=== PATIENT | female | born 2000 | race Caucasian/White ===

== ENCOUNTER 2019-04-04 12:33 | Emergency (ER) | payer OTHER, SELFPAY ==
[2019-04-04 12:45] VITALS: BP 123/73; PULSE 78; RESP 16; TEMP 37; O2SAT 100
--- NOTE | 2019-04-04 13:30 | ED.GENADULT ---
HPI - General Adult General Chief complaint: Abdominal Pain Stated complaint: ABD PAIN Time Seen by Provider: 04/04/19 13:30 Source: patient and RN notes reviewed Mode of arrival: ambulatory Limitations: no limitations History of Present Illness HPI narrative: This is a 18 years old female presented office for evaluation of possible UTI.Symptoms began last night with suprapubic tenderness and nauseated feeling.She woke up with urinary burning, frequency and urgency. She took Azo prior to arrival. She is sexually active. Denies chance of or concern for STD.Symptoms reminiscent her previous UTI. Related Data Home Medications Medication Instructions Recorded Confirmed buspirone 10 mg PO HS 04/04/19 04/04/19 levonorgestrel-ethinyl estrad 1 tablet PO DAILY 04/04/19 04/04/19 [Lessina] sertraline 100 mg PO DAILY 04/04/19 04/04/19 Allergies Allergy/AdvReac Type Severity Reaction Status Date / Time nitrofurantoin Allergy Itching Verified 04/04/19 12:42 Review of Systems Review of Systems: Narrative: CONSTITUTIONAL: Denies fever CARDIOVASCULAR: Denies chest pain RESPIRATORY: Denies cough GASTROINTESTINAL: Reports abdominal pain, nausea, vomiting GENITOURINARY: Denies vaginal discharge SKIN: Denies rash MUSCULOSKELETAL: Denies acute back pain NEUROLOGIC: Denies lightheaded PMFSH Social History Social History (Updated 04/04/19 @ 13:37 by ABI Gross) Smoking status: Never smoker Comments At time of signature, I agree with nursing past medical, surgical, social and family history. There is no relevant family history pertinent to the presenting complaint. Exam Narrative: Exam Narrative: GENERAL: This is a well-nourished, well-developed patient, in no apparent distress. CARDIOVASCULAR: Regular rate and rhythm without murmurs, gallops, or rubs. RESPIRATORY: Clear to auscultation. Breath sounds equal bilaterally. No wheezes, rales, or rhonchi. GASTROINTESTINAL: Abdomen soft, suprapubic tenderness noted, nondistended. Bowel sounds are active. No hepato-splenomegaly, or palpable masses. No guarding. SKIN: warm, intact with no suspicious lesions or rash, good texture and turgor. NEURO: awake, alert, and oriented to person, place and time. There were no obvious focal neurologic abnormalities. Steady gait BACK: Nontender without deformity or crepitance. No flank tenderness. Corona Coma Scale Eye Opening: Spontaneous 4 Krzysztof Coma Scale Motor: Obeys Commands 6 Krzysztof Coma Scale Verbal: Oriented 5 Course Vital Signs Vital signs: Vital Signs Temperature 98.6 F 04/04/19 12:45 Pulse Rate 78 04/04/19 12:45 Respiratory Rate 16 04/04/19 12:45 Blood Pressure 123/73 04/04/19 12:45 Pulse Oximetry 100 04/04/19 12:45 Temperature 98.6 F 04/04/19 12:45 Pulse Rate 78 04/04/19 12:45 Respiratory Rate 16 04/04/19 12:45 Blood Pressure 123/73 04/04/19 12:45 Pulse Oximetry 100 04/04/19 12:45 Medical Decision Making MDM Narrative Medical decision making narrative: Discharge instructions reviewed with patient, as well as provided in writing per nursing staff. The instructions also include specific and strict return/GO TO THE ER as well as f/u information. All questions have been answered, and the patient deny any further questions with discharge and discharge plan. Differential Diagnosis Differential Diagnosis: Cystitis, Nephrolithiasis, bacterial vaginosis, Nephritis, candidiasis, vaginitis, pyelonephritis Vital Signs Vital Signs: Vital Signs Temperature 98.6 F 04/04/19 12:45 Pulse Rate 78 04/04/19 12:45 Respiratory Rate 16 04/04/19 12:45 Blood Pressure 123/73 04/04/19 12:45 Pulse Oximetry 100 04/04/19 12:45 Temperature 98.6 F 04/04/19 12:45 Pulse Rate 78 04/04/19 12:45 Respiratory Rate 16 04/04/19 12:45 Blood Pressure 123/73 04/04/19 12:45 Pulse Oximetry 100 04/04/19 12:45 Lab Data Lab results reviewed: Yes I reviewed
== END 2019-04-04 13:45 | disposition home or self-care (01) ==
PROVIDERS: Emergency Provider Nurse Practitioner
DX: R10.30 Lower abdominal pain, unspecified (principal); R30.0 Dysuria; R35.0 Frequency of micturition; R39.15 Urgency of urination
CPT/HCPCS: 81003; 87086; 87088; 99213; G0463